=== PATIENT | male | born 1945 | race Caucasian/White ===

== ENCOUNTER 2020-07-15 07:53 | Day surgery (SDC) | payer MEDICARE ==
[2020-07-05 15:28] VITALS: BMI 33.5
[~2020-07-15 07:53] MED LIST: LACTATED RINGERS 1,000 ML IV SCH; SODIUM CHLORIDE 0.9% 1,000 ML IV SCH; ceFAZolin 1 GM in SODIUM CHLORIDE 0.9% 250 ML IRRIGATION PRN
[2020-07-15] MEDS ORDERED: SODIUM CHLORIDE 0.9% 1,000 ML IV ONE (08:13)
[2020-07-15 08:17] VITALS: RESP 16; TEMP 97
[2020-07-15] MEDS ORDERED: KETAMINE 10 MG/ML 20 ML VIAL ONE (09:29)
[2020-07-15] MEDS ORDERED: fentaNYL (PF) 50 MCG/ML 2 ML AMP ONE (09:29)
[2020-07-15] MEDS ORDERED: PROPOFOL 10 MG/ML 20 ML VIAL IV ONE (09:29)
[2020-07-15] MEDS ORDERED: MIDAZOLAM 2 MG/2 ML VIAL ONE (09:29)
[2020-07-15] MEDS: IOPAMIDOL-250 50ML BTL IV ONE ×2 (10:00→11:35)
[2020-07-15] MEDS ORDERED: LIDOCAINE 1% INJ 10MG/ML (20 ML MDV) ONE ×2 (10:16)
[2020-07-15] MEDS: LIDOCAINE 1% INJ 10MG/ML (20 ML MDV) SQ ONE ×2 (11:14→11:30)
[2020-07-15] MEDS ORDERED: ACETAMINOPHEN TAB 325 MG TAB PO PRN (12:26)
[2020-07-15] MEDS ORDERED: ACETAMINOPHEN IV (For NPO) 1,000 MG in EMPTY BAG 1 BAG IVPB ONE (12:26)
--- NOTE | 2020-07-15 15:10 | XR ---
EXAMINATION TYPE: XR chest 1V portable DATE OF EXAM: 07/15/2020 COMPARISON: NONE HISTORY: Lead placement TECHNIQUE: Single frontal view of the chest is obtained. FINDINGS: There are multiple leads seen overlying the cardiac silhouette. 2 leads overlie the ventri cular region in the proximal lead overlies the right atrium. Heart is enlarged and there is a coarsen ed interstitium with bilateral lower lobe infiltrate and small effusion. No pneumothorax. Arthropathy of the shoulders. Changes of COPD suspected. IMPRESSION: 1. COPD with by basilar atelectasis or early infiltrate and small effusion. Correlate for mild centra l venous congestion. 2. No evidence of pneumothorax.
[2020-07-15 16:45] VITALS: BP 132/76; PULSE 74
--- NOTE | 2020-07-17 12:36 | CE ---
CARDIAC ELECTROPHYSIOLOGY REPORT Mr. Mccloud had a dual-chamber ICD for cardiomyopathy with an underlying left bundle branch block pattern, prolonged p.r.n. interval, intermittent RV pacing. He has a high RV pacing percentage and he underwent an upgrade to a biventricular ICD since his device is at [facility] and he had congestive heart failure, chronic cardiomyopathy with left bundle branch block pattern in a prolonged p.r.n. interval with increased RV pacing. The patient was brought to the EP lab in a fasting state. Written informed consent was obtained prior to the procedure. The left upper extremity had been performed the left axillary vein was patent. The left pectoral area was prepped and draped as per protocol. 1% lidocaine was used for local anesthesia. IV antibiotics were administered. An incision was made over the pectoral area and carried down to the level of the generator. The generator was explanted. Partial capsulectomy was performed. Access was obtained and venous sheath was placed in the left subclavian vein. This is extrathoracic axillary access. Coronary sinus catheter and coronary sinus sheath placed in the right side of the heart and the coronary sinus was accessed. We were able to access the posterolateral/lateral vein and directly sub selected. Venogram was performed and various tributaries identified. An LV lead was placed. This was a [employer] quadripolar lead with interelectrode spacing and this was placed in the subfascial, lateral vein, and very stable position. The sheath was removed. The lead was secured to the underlying pectoralis muscle. The old dual chamber generator ICD generator was explanted. The new generator was implanted. This was a biventricular ICD, [employer] [place], heart failure CD [id number] CRTD serial #[id number]. The LV threshold was elevated and the proximal and electrode 3 and 4 were the best thresholds. Best thresholds obtained at 2.5 V at 0.5 milliseconds, M3-RV coil. RV and atrial leads were functioning normally. RV pacing threshold 0.7 V at 0.5 milliseconds. R-waves 9.1 mV, pacing impedance 530 ohms. Atrial pacing threshold 0.75 V at 0.5 milliseconds. P waves 4.4 mV and pacing impedance of 350 ohms. The device was then programmed to DDD mode at 50-130 ppm with an AV delay of 130 milliseconds and LV offset 55 milliseconds. RIT programming was performed. RESULTS: Successful biventricular ICD with LV lead placed in the posterior lateral vein. This was a large vein and he had no other meaningful anterior veins. These were all diminutive in size. The patient tolerated the procedure well without any acute complications. LV thresholds were elevated at baseline. Diaphragmatic stimulation was negative. MMODL / IJN: [id number] /
== END 2020-07-15 17:18 | disposition home or self-care (01) ==
LOC: CATHEP 07:53
PROVIDERS: ATTEND Internal Medicine Clinical Cardiac Electrophysiology
DX: Z45.02 Encounter for adjustment and management of automatic implantable cardiac defibrillator (principal); I50.22 Chronic systolic (congestive) heart failure; I42.6 Alcoholic cardiomyopathy; I44.7 Left bundle-branch block, unspecified; I48.0 Paroxysmal atrial fibrillation; R00.1 Bradycardia, unspecified; I11.0 Hypertensive heart disease with heart failure; E78.5 Hyperlipidemia, unspecified; K08.409 Partial loss of teeth, unspecified cause, unspecified class; Z79.01 Long term (current) use of anticoagulants; Z72.0 Tobacco use; Z79.899 Other long term (current) drug therapy
CPT/HCPCS: 33264; 33225; 84132; 71045; C1769 ×3; C1882; C1892; C1730; C1900; J2250; J0690; J2001; J3010; J0131; J2704; Q9966; 33214

== ENCOUNTER → 2023-02-12 | Outpatient (CLI) | payer MEDICARE ==
[2023-02-12 15:29] LABS: ALT 11 U/L (10-49); AST 16 U/L (14-35); Albumin 4.2 d/dL (3.8-4.9); Albumin/Globulin Ratio 1.24 Ratio (1.60-3.17); Alkaline Phosphatase 71 U/L (41-126); BUN/Creat Ratio 24.93 Ratio (12.00-20.00); Blood Urea Nitrogen 37.4 mg/dL (9.0-27.0); Calcium 9.9 mg/dL (8.7-10.3); Carbon Dioxide 20.2 mmol/L (21.6-31.8); Chloride 101 mmol/L (96-109); Chol/HDL Ratio 3.33 Ratio; Globulin 3.4 d/dL (1.6-3.3); Glucose 118 mg/dL (70-110); LDL Cholesterol,Calculated 67.3 mg/dL (0.0-131.0); Potassium 4.8 mmol/L (3.5-5.5); Sodium 136 mmol/L (135-145); Total Bilirubin 0.2 mg/dL (0.3-1.2); Total Protein 7.6 d/dL (6.2-8.2)
== END | disposition home or self-care (01) ==
LOC: LABWHC1 11:26
PROVIDERS: ATTEND Internal Medicine Interventional Cardiology
DX: I10 Essential (primary) hypertension (principal); I48.91 Unspecified atrial fibrillation
CPT/HCPCS: 36415; 80053; 80061; 83036; 84443